=== PATIENT | male | born 1950 ===

== ENCOUNTER 2024-04-13 08:36 | Outpatient (CLI) | payer OTHER | END 2024-04-13 08:41 | disposition home or self-care (01) | LOC: RAD 08:36 | PROVIDERS: ATTEND Surgery | DX: C18.2 Malignant neoplasm of ascending colon (principal); R59.0 Localized enlarged lymph nodes; K92.1 Melena ==

== ENCOUNTER 2024-04-18 08:12 | Inpatient (IN) | payer OTHER ==
[~2024-04-18] VITALS: Ht 167.6 cm; Wt 105.7 kg
[2024-04-18] MEDS ORDERED: ZESTRIL10 M1 PO (08:19)
[2024-04-18] MEDS ORDERED: SPIRONOLACTONE50 MG PO (08:20)
[2024-04-18] MEDS ORDERED: MIRTAZAPINE45 M1 PO (08:20)
[2024-04-18] MEDS ORDERED: LASIX20 MG PO (08:20)
[2024-04-18] MEDS ORDERED: METFORMIN HCL1000 M2 PO (08:21)
[2024-04-18] MEDS ORDERED: DULOXETINE HCL30 MG PO (08:21)
[2024-04-18] MEDS ORDERED: GRALISE600 MG PO (08:22)
[2024-04-18] MEDS ORDERED: SEROQUEL XR50 MG PO (08:22)
[2024-04-18] MEDS ORDERED: HYDROXYZINE PAM25 MG PO (08:24)
[2024-04-18 10:59] LABS: RH POSITIVE
[2024-04-21 16:54] LABS: COL EPI 31 SECONDS (82-175)
[2024-04-21 17:00] LABS: PARTIAL THROMBOPLASTIN TIME 30.9 SECONDS (22.0-34.0); PROTHROMBIN TIME 10.9 SECONDS (9.0-11.5)
[2024-04-26] MEDS ORDERED: METRONIDAZOLE/SODIUM CHLORIDE 500 MG/100 ML PIGGYBACK IV ONE (14:58)
[2024-04-26] MEDS ORDERED: CEFTRIAXONE SODIUM 2,000 MG VIAL ONE (14:58)
[2024-04-26] MEDS ORDERED: LIDOCAINE HCL 1%/EPINEPHRINE 20ML VIAL IJ ONE (15:56)
[2024-04-26] MEDS ORDERED: BUPIVACAINE HCL/Mpf 0.5% 10ML VIAL ONE (15:56)
[2024-04-26] MEDS ORDERED: MORPHINE SULFATE 4 MG/ML CARTRIDGE IV PRN (18:45)
[2024-04-26] MEDS ORDERED: RINGERS SOLUTION,LACTATED 1,000 ML IV SCH (18:45)
[2024-04-26] MEDS ORDERED: OxyCODONE HCL 5 MG TABLET (ROXICODONE) PO PRN (18:45)
[2024-04-26] MEDS ORDERED: DEXTROSE 50 % IN WATER 0.5 G/ML DISP.SYRIN IV PRN (18:45)
[2024-04-26] MEDS ORDERED: ONDANSETRON HCL 2 MG/ML VIAL IV PRN (18:45)
[2024-04-26] MEDS ORDERED: MORPHINE SULFATE 4 MG/ML VIAL IV ONE ×2 (19:25→19:55)
[2024-04-26] MEDS ORDERED: ACETAMINOPHEN 500 MG GEL..CAP PO SCH (20:00)
[2024-04-26] MEDS ORDERED: FAMOTIDINE/PF 20 MG/2 ML VIAL IV PUSH SCH (21:00)
[2024-04-26] MEDS ORDERED: FAMOTIDINE/PF 20 MG/2 ML VIAL ONE (21:31)
[2024-04-26 21:47] LABS: HEMATOCRIT 36.5 % (39.0-48.0); HEMOGLOBIN 12.5 g/dL (13-16.00); MEAN CELL VOLUME 89.1 fL (80.0-100.00); MEAN CORPUSCULAR HEMOGLOBIN 30.5 pg (27.00-32.0); MEAN CORPUSCULAR HGB CONC 34.2 g/dl (32.0-36.0); PLATELET COUNT 208 K/uL (150-450); RED BLOOD COUNT 4.09 M/uL (4.00-6.00); RED CELL DISTRIBUTION WIDTH 13.1 % (11.5-14.5)
[2024-04-26 22:08] LABS: ALBUMIN 3.3 gm/dL (3.4-5.0); CALCIUM 8.3 mg/dL (8.5-10.1); CREATININE SERUM 1.59 mg/dL (0.70-1.30); GFR 43.01; MAGNESIUM 1.7 mg/dL (1.8-2.4); PHOSPHOROUS 4.3 mg/dL (2.5-4.9); POTASSIUM 4.17 mEq/L (3.5-5.1)
[2024-04-27] MEDS ORDERED: ACETAMINOPHEN 500 MG GEL..CAP PO ONE (00:10)
[2024-04-27] MEDS ORDERED: GABAPENTIN 300 MG CAPSULE PO ONE (00:10)
[2024-04-27] MEDS ORDERED: MORPHINE SULFATE 4 MG/ML VIAL IV ONE ×3 (01:00→10:50)
[2024-04-27] MEDS ORDERED: GABAPENTIN 300 MG CAPSULE PO SCH (01:00)
[2024-04-27] MEDS ORDERED: INSULIN LISPRO 1,000 UNIT/10 ML UNITS SUBCUTANEO PRN (05:15)
[2024-04-27] MEDS ORDERED: ENALAPRILAT DIHYDRATE 1.25 MG/ML VIAL IV PRN (05:15)
[2024-04-27] MEDS ORDERED: DEXTROSE 50 % IN WATER 0.5 G/ML DISP.SYRIN IV PRN (05:15)
[2024-04-27 07:10] LABS: HEMATOCRIT 36.4 % (39.0-48.0); HEMOGLOBIN 12.1 g/dL (13-16.00); MEAN CELL VOLUME 90.4 fL (80.0-100.00); MEAN CORPUSCULAR HGB CONC 33.2 g/dl (32.0-36.0); PLATELET COUNT 202 K/uL (150-450); RED BLOOD COUNT 4.03 M/uL (4.00-6.00); RED CELL DISTRIBUTION WIDTH 12.9 % (11.5-14.5)
[2024-04-27 07:54] LABS: ALBUMIN 3.1 gm/dL (3.4-5.0); CALCIUM 8.2 mg/dL (8.5-10.1); CREATININE SERUM 1.08 mg/dL (0.70-1.30); GFR 67.21; MAGNESIUM 1.8 mg/dL (1.8-2.4); PHOSPHOROUS 4.1 mg/dL (2.5-4.9); POTASSIUM 4.46 mEq/L (3.5-5.1)
[2024-04-27] MEDS ORDERED: LISINOPRIL 10 MG TABLET PO SCH (09:00)
[2024-04-27] MEDS ORDERED: DONEPEZIL HCL 10 MG TABLET PO SCH (09:00)
[2024-04-27] MEDS ORDERED: SPIRONOLACTONE 50 MG TABLET PO SCH (09:00)
[2024-04-27] MEDS ORDERED: HYOSCYAMINE SULFATE 0.125 MG TAB.SUBL SL SCH (09:00)
[2024-04-27] MEDS ORDERED: FUROsemide 20 MG TABLET PO SCH (09:00)
[2024-04-27] MEDS ORDERED: Duloxetine HCl 30 MG CAPSULE.DR PO SCH (09:00)
[2024-04-27 09:16] LABS: ABG PH 7.369 (7.35-7.45); ABG PO2 80.9 mmHg (80-100); ABG pCO2 47.2 mmHg (35-45); BASE EXCESS 0.7 mmol/l; BICARBONATE 26.6 mmol/l (23-25); SaO2 95.4 %; allen test SATISFACTORY; o2 32 %; puncture site RADIAL RIGHT
[2024-04-27 17:00] VITALS: BP 122/76; O2SAT 93
[2024-04-27] MEDS ORDERED: ENOXAPARIN SODIUM 40 MG/0.4 ML SYRINGE SUBCUTANEO SCH (17:00)
[2024-04-27] MEDS ORDERED: POLYETHYLENE GLYCOL 3350 17 GM BLIST.PACK PO SCH (17:00)
[2024-04-27 18:28] VITALS: O2SAT 90
[2024-04-27 20:38] VITALS: O2SAT 96
[2024-04-27] MEDS ORDERED: PATIENTS OWN MEDICATION (MEDICAMENTO EN PISO) PO SCH (21:00)
[2024-04-27] MEDS ORDERED: QUETIAPINE FUMARATE 25 MG TABLET PO SCH (21:00)
[2024-04-27] MEDS ORDERED: DOXAZOSIN MESYLATE 2 MG TABLET PO SCH (21:00)
[2024-04-28 00:35] VITALS: O2SAT 90
[2024-04-28 00:43] VITALS: BP 155/91; O2SAT 95
[2024-04-28 07:16] LABS: HEMATOCRIT 37.9 % (39.0-48.0); HEMOGLOBIN 12.6 g/dL (13-16.00); MEAN CELL VOLUME 91.2 fL (80.0-100.00); MEAN CORPUSCULAR HEMOGLOBIN 30.4 pg (27.00-32.0); MEAN CORPUSCULAR HGB CONC 33.4 g/dl (32.0-36.0); PLATELET COUNT 209 K/uL (150-450); RED BLOOD COUNT 4.15 M/uL (4.00-6.00); RED CELL DISTRIBUTION WIDTH 12.9 % (11.5-14.5)
[2024-04-28 07:50] LABS: CALCIUM 9.2 mg/dL (8.5-10.1); CREATININE SERUM 0.93 mg/dL (0.70-1.30); GFR 79.87; MAGNESIUM 2.2 mg/dL (1.8-2.4); POTASSIUM 4.74 mEq/L (3.5-5.1)
[2024-04-28 08:07] VITALS: BP 157/82; O2SAT 98
[2024-04-28] MEDS ORDERED: ENOXAPARIN SODIUM 40 MG/0.4 ML SYRINGE SUBCUTANEO SCH (09:00)
[2024-04-28 09:09] VITALS: O2SAT 98
[2024-04-28 13:20] VITALS: O2SAT 90
[2024-04-28 18:35] VITALS: BP 129/71; O2SAT 93
[2024-04-29] VITALS: BP 128/82; O2SAT 97
[2024-04-29 08:59] VITALS: BP 132/86; O2SAT 95
[2024-04-29 09:21] LABS: HEMOGLOBIN 11.9 g/dL (13-16.00); MEAN CELL VOLUME 89.6 fL (80.0-100.00); MEAN CORPUSCULAR HEMOGLOBIN 31.4 pg (27.00-32.0); PLATELET COUNT 221 K/uL (150-450); RED BLOOD COUNT 3.79 M/uL (4.00-6.00); RED CELL DISTRIBUTION WIDTH 13.2 % (11.5-14.5)
[2024-04-29 10:04] LABS: CALCIUM 8.6 mg/dL (8.5-10.1); CREATININE SERUM 0.9 mg/dL (0.70-1.30); GFR 82.95; MAGNESIUM 2.1 mg/dL (1.8-2.4); PHOSPHOROUS 2.8 mg/dL (2.5-4.9); POTASSIUM 4.12 mEq/L (3.5-5.1)
[2024-04-29] MEDS ORDERED: MORPHINE SULFATE 4 MG/ML CARTRIDGE IV PRN (13:45)
[2024-04-29 16:49] VITALS: O2SAT 90
[2024-04-29] MEDS ORDERED: AA 2.36%/D6.8W/FAT/E-LYTES NO9 1,440 ML IV SCH (17:00)
[2024-04-29] MEDS ORDERED: AMINO ACIDS 4.25 %/DEXTROSE 5% 1,000 ML PERIFERAL SCH (17:00)
[2024-04-29 17:46] VITALS: BP 125/76; O2SAT 97
[2024-04-29 17:57] LABS: CALCIUM 8.3 mg/dL (8.5-10.1); CHOL HDL RATIO 4.5 (0-5.0); CREATININE SERUM 0.74 mg/dL (0.70-1.30); GFR 103.97; POTASSIUM 3.89 mEq/L (3.5-5.1)
[2024-04-30] VITALS (7 sets, daily range): BP systolic 130–155; BP diastolic 80–88; O2SAT 90–97
[2024-04-30 07:50] LABS: CALCIUM 8.6 mg/dL (8.5-10.1); CREATININE SERUM 0.78 mg/dL (0.70-1.30); GFR 97.84; MAGNESIUM 2.2 mg/dL (1.8-2.4); PHOSPHOROUS 2.7 mg/dL (2.5-4.9); POTASSIUM 4.31 mEq/L (3.5-5.1)
[2024-04-30 07:56] LABS: HEMATOCRIT 35.5 % (39.0-48.0); HEMOGLOBIN 12.3 g/dL (13-16.00); MEAN CELL VOLUME 90.1 fL (80.0-100.00); MEAN CORPUSCULAR HEMOGLOBIN 31.2 pg (27.00-32.0); MEAN CORPUSCULAR HGB CONC 34.7 g/dl (32.0-36.0); PLATELET COUNT 247 K/uL (150-450); RED BLOOD COUNT 3.94 M/uL (4.00-6.00)
[2024-04-30] MEDS ORDERED: PIPERACILLIN/TAZOBACTAM SODIUM 3.375 GM in DEXTROSE 5 % IN WATER 100 ML IV SCH (18:00)
[2024-05-01] VITALS (7 sets, daily range): BP systolic 110–156; BP diastolic 69–77; O2SAT 90–98
[2024-05-02] VITALS (9 sets, daily range): BP systolic 122–150; BP diastolic 83–99; O2SAT 94–100
[2024-05-02 06:53] LABS: HEMATOCRIT 34.7 % (39.0-48.0); MEAN CORPUSCULAR HEMOGLOBIN 30.9 pg (27.00-32.0); MEAN CORPUSCULAR HGB CONC 34.7 g/dl (32.0-36.0); PLATELET COUNT 264 K/uL (150-450); RED CELL DISTRIBUTION WIDTH 12.9 % (11.5-14.5)
[2024-05-02 07:47] LABS: ALBUMIN 2.8 gm/dL (3.4-5.0); BILIRUBIN TOTAL 0.98 mg/dL (0.3-1.2); CALCIUM 8.2 mg/dL (8.5-10.1); CREATININE SERUM 0.72 mg/dL (0.70-1.30); GFR 107.31; GLOBULINA 3.8 G/DL (2.4-3.5); POTASSIUM 3.97 mEq/L (3.5-5.1); TOTAL PROTEIN 6.6 gm/dL (6.4-8.2)
[2024-05-02] MEDS ORDERED: PANTOPRAZOLE SODIUM 80 MG in 0.9 % SODIUM CHLORIDE 100 ML IV SCH (12:45)
[2024-05-02 15:18] LABS: INR 1.12; PARTIAL THROMBOPLASTIN TIME 32.8 SECONDS (22.0-34.0); PROTHROMBIN TIME 12.1 SECONDS (9.0-11.5)
[2024-05-02 15:32] LABS: BILIRUBIN TOTAL 1.16 mg/dL (0.3-1.2); BILIRUBIN,CONJUGATED 0.42 mg/dL (0.0-0.2); BILIRUBIN,UNCONJUGATED 0.74 mg/dL (0.0-0.6); CHOL HDL RATIO 5.2 (0-5.0); MAGNESIUM 2.3 mg/dL (1.8-2.4); TOTAL PROTEIN 7.1 gm/dL (6.4-8.2)
[2024-05-03] VITALS (8 sets, daily range): BP systolic 139–149; BP diastolic 78–88; O2SAT 85–100
[2024-05-03 07:25] LABS: HEMOGLOBIN 11.9 g/dL (13-16.00); MEAN CELL VOLUME 89.9 fL (80.0-100.00); MEAN CORPUSCULAR HEMOGLOBIN 30.6 pg (27.00-32.0); PLATELET COUNT 297 K/uL (150-450); RED BLOOD COUNT 3.89 M/uL (4.00-6.00); RED CELL DISTRIBUTION WIDTH 12.9 % (11.5-14.5)
[2024-05-03 08:17] LABS: CALCIUM 8.2 mg/dL (8.5-10.1); CREATININE SERUM 0.72 mg/dL (0.70-1.30); GFR 107.31; MAGNESIUM 2.2 mg/dL (1.8-2.4); PHOSPHOROUS 3.4 mg/dL (2.5-4.9); POTASSIUM 4.11 mEq/L (3.5-5.1)
[2024-05-04] VITALS (7 sets, daily range): BP systolic 143–146; BP diastolic 78–88; O2SAT 90–100
[2024-05-04] MEDS ORDERED: VANCOMYCIN HCL 1,000 MG VIAL IV SCH (17:00)
[2024-05-04] MEDS ORDERED: PANTOPRAZOLE SODIUM 40 MG/VIAL VIAL IV SCH (21:00)
[2024-05-05 00:40] VITALS: BP 129/79; O2SAT 98
[2024-05-05 01:57] VITALS: O2SAT 96
[2024-05-05 07:57] VITALS: BP 129/78; O2SAT 97
[2024-05-05 09:10] VITALS: O2SAT 90
[2024-05-05] MEDS ORDERED: DIATRIZOATE MEGLUMINE, SODIUM 30 ML BOTTLE PO NR (13:00)
[2024-05-05 13:36] VITALS: O2SAT 97
[2024-05-05 16:00] VITALS: BP 147/78; O2SAT 98
[2024-05-06] VITALS: BP 135/81; O2SAT 95
[2024-05-06 00:40] VITALS: O2SAT 75
[2024-05-06 05:41] VITALS: O2SAT 96
[2024-05-06 05:47] LABS: HEMATOCRIT 34.2 % (39.0-48.0); HEMOGLOBIN 11.4 g/dL (13-16.00); MEAN CELL VOLUME 88.9 fL (80.0-100.00); MEAN CORPUSCULAR HEMOGLOBIN 29.8 pg (27.00-32.0); MEAN CORPUSCULAR HGB CONC 33.5 g/dl (32.0-36.0); PLATELET COUNT 361 K/uL (150-450); RED BLOOD COUNT 3.84 M/uL (4.00-6.00); RED CELL DISTRIBUTION WIDTH 12.7 % (11.5-14.5)
[2024-05-06 06:50] LABS: CALCIUM 8.1 mg/dL (8.5-10.1); CREATININE SERUM 0.8 mg/dL (0.70-1.30); GFR 95.02; MAGNESIUM 2.1 mg/dL (1.8-2.4); PHOSPHOROUS 2.9 mg/dL (2.5-4.9); POTASSIUM 4.26 mEq/L (3.5-5.1)
[2024-05-06 08:11] VITALS: BP 128/83; O2SAT 96
[2024-05-06 09:52] VITALS: O2SAT 100
[2024-05-06] MEDS ORDERED: TYLENOL ARTHRI650 MG PO (12:51)
[2024-05-06] MEDS ORDERED: NEURONTIN300 MG PO (12:51)
[2024-05-06] MEDS ORDERED: AMOX1TAB5 PO (12:51)
[2024-05-06 13:23] VITALS: O2SAT 96
[2024-05-06] MEDS ORDERED: VANCOMYCIN HCL 5 MG/ML REDILUIDO IV SCH (17:00)
== END 2024-05-06 14:32 | disposition home or self-care (01) | DRG 330 ==
LOC: EDUNIT# 11:15 → SURH 04-26 07:00 → O/R 04-26 09:07 → SURH 04-26 11:15 → O/R 05-03 14:34 → SURH 05-03 14:36
PROVIDERS: Internal Medicine Geriatric Medicine; Surgery; ADMIT Surgery; ATTEND Surgery
PROC: 0WQF0ZZ Repair Abdominal Wall, Open Approach (ICD-10-PCS; 2024-04-26)
PROC: 0WJF4ZZ Inspection of Abdominal Wall, Percutaneous Endoscopic Approach (ICD-10-PCS; 2024-04-26)
PROC: 0DNW0ZZ Release Peritoneum, Open Approach (ICD-10-PCS; 2024-04-26)
PROC: 07BB0ZZ Excision of Mesenteric Lymphatic, Open Approach (ICD-10-PCS; 2024-04-26)
PROC: 0DBU0ZZ Excision of Omentum, Open Approach (ICD-10-PCS; 2024-04-26)
PROC: 0DTF0ZZ Resection of Right Large Intestine, Open Approach (ICD-10-PCS; principal; 2024-04-26 07:00)
PROC: 4A12X4Z Monitoring of Cardiac Electrical Activity, External Approach (ICD-10-PCS; 2024-04-27)
PROC: 0D9670Z Drainage of Stomach with Drainage Device, Via Natural or Artificial Opening (ICD-10-PCS; 2024-04-28)
PROC: 02HV33Z Insertion of Infusion Device into Superior Vena Cava, Percutaneous Approach (ICD-10-PCS; 2024-04-29)
PROC: 3E0436Z Introduction of Nutritional Substance into Central Vein, Percutaneous Approach (ICD-10-PCS; 2024-04-29)
PROC: BW21ZZZ Computerized Tomography (CT Scan) of Abdomen and Pelvis (ICD-10-PCS; 2024-05-05)
DX: C18.2 Malignant neoplasm of ascending colon (principal); C18.4 Malignant neoplasm of transverse colon; K92.1 Melena; K91.89 Other postprocedural complications and disorders of digestive system; K56.7 Ileus, unspecified; L03.311 Cellulitis of abdominal wall; T81.41XA Infection following a procedure, superficial incisional surgical site, initial encounter; D64.89 Other specified anemias; K43.2 Incisional hernia without obstruction or gangrene; K66.0 Peritoneal adhesions (postprocedural) (postinfection); R59.0 Localized enlarged lymph nodes; E83.42 Hypomagnesemia; E11.9 Type 2 diabetes mellitus without complications; I10 Essential (primary) hypertension; G47.33 Obstructive sleep apnea (adult) (pediatric); Z79.84 Long term (current) use of oral hypoglycemic drugs; Z53.31 Laparoscopic surgical procedure converted to open procedure; Y83.8 Other surgical procedures as the cause of abnormal reaction of the patient, or of later complication, without mention of misadventure at the time of the procedure